=== PATIENT | female | born 1965 | race American Indian/Alaskan Native ===

== ENCOUNTER 2020-02-25 15:17 | Inpatient (IN) | payer SELFPAY ==
[2020-02-25 15:30] VITALS: BMI 29.2
--- NOTE | 2020-02-25 15:54 | PDOC ---
History of Present Illness - General Chief Complaint: Seizure Stated Complaint: SEIZURE Time Seen by Provider: 02/25/20 15:21 - History of Present Illness Initial Comments: 02/25/20 16:10 54 yo female with pmh of epilepsy disorder presents to ED for syncopal event earlier today. Pt daughter explains because pt does not remember event. Pt ate some food and then after eating about two minutes later the daughter came back into the room and saw pt her on the floor on her left with drool coming out of her mouth. According to daughter, pt was nonresponsive for few minutes to painful stimuli. After a few minutes pt came back to normal baseline mental status. According to EMS pt did have a postictal state and did come back to no rmal mental status but was complaining of nausea so was given zofran. Pt currently has a mild headache going from the back of her head to the front of her head. Pt prior to her seizure did have a normal preaura where she felt fatigue. Pt is supposed to be on keppra 500mg QD, but stopped taking it a year ago. Pt last seizure was 2 years ago. Pt usual seizures is generalized tonic clonic seizure. Pt denies chest pain, fevers, SOB, abdominal pain, dysuria, urinary frequency, blurry vison, weakness, stiff neck, palpitations, rash and not under increased stress. Pt has recently traveled from [facility] 1.5 weeks ago with no sick contacts. PMH: Epilepsy Meds: denies current medication. PsH; hysterectomy Allergies: denies Social: denies drugs or tobacco; occasional wine with dinner Neurologist: in [facility] Past History - Medical History Allergies/Adverse Reactions: Allergies Allergy/AdvReac Type Severity Reaction Status Date / Time No Known Allergies Allergy Verified 02/25/20 15:30 Home Medications: Ambulatory Orders NK [No Known Home Medication] 02/25/20 COPD: No Seizures: Yes (stopped meds 1.5 years ago.) - Reproductive History Is Patient Now?: No - Psycho-Social/Smoking History Smoking History: Smoker current status UNK - Substance Abuse Hx (Audit-C & DAST Scrn) In the last yr the pt used illegal drug/Rx for NonMed reason: No Score: Yes response is considered Positive: 0 Screen Result (Positive result requires Nsg. DAST-10): Negative Review of Systems - Review of Systems Comments:: 10/13/20 16:35 GENERAL/CONSTITUTIONAL: No fever or chills. No weakness. HEAD, EYES, EARS, NOSE AND THROAT: No change in vision. No ear pain or discharge. No sore throat. CARDIOVASCULAR: No chest pain or shortness of breath RESPIRATORY: No cough, wheezing, or hemoptysis. GASTROINTESTINAL:Nauseos. No vomiting, diarrhea or constipation. GENITOURINARY: No dysuria, frequency, or change in urination. MUSCULOSKELETAL: No joint or muscle swelling or pain. No neck or back pain. SKIN: No rash NEUROLOGIC: Headache. LOC ENDOCRINE: No increased thirst. No abnormal weight change ALLERGIC/IMMUNOLOGIC: No hives or skin allergy. *Physical Exam - Vital Signs Last Vital Signs Temp Pulse Resp BP Pulse Ox 98.2 F 110 H 18 110/83 99 02/25/20 15:22 02/25/20 15:22 02/25/20 15:22 02/25/20 15:22 02/25/20 15:22 - Physical Exam 02/25/20 16:36 GENERAL: Awake, alert, and fully oriented, in no acute distress HEAD: No signs of trauma, normocephalic, atraumatic EYES: PERRLA, EOMI, sclera anicteric, conjunctiva clear ENT: Auricles normal inspection, hearing grossly normal, nares patent, or opharynx clear without exudates. Moist mucosa NECK: Normal ROM, supple, no lymphadenopathy, JVD, or masses LUNGS: No distress, speaks full sentences, clear to auscultation bilaterally HEART: Regular rate and rhythm, normal S1 and S2, no murmurs, rubs or gallops, peripheral pulses normal and equal bilaterally. ABDOMEN: Soft, nontender, normoactive bowel sounds. No guarding, no rebound. No masses EXTREMITIES : Normal inspection, Normal range of motion, no edema. No clubbing or cyanosis. NEUROLOGICAL: Cranial nerves II through XII intact. Normal speech, normal gait, no focal sensorimotor deficits. Finger to nose intact. Heel to sheriff intact. 5/5 muscle strength in upper and lower ext. SKIN: Warm, Dry, normal turgor, no rashes or lesions noted Heart Score/ECG Review - ECG Impressions Comment:: 02/25/20 16:59 Regular rate and rhythm at 89 bpm Normal axis No St segment changes or signs of ischemia Normal MA, QRS, and QT intervals. ED Treatment Course - LABORATORY CBC & Chemistry Diagram: 02/25/20 16:30 02/25/20 16:30 Medical Decision Making - Medical Decision Making 02/25/20 16:25 54 yo female coming in with pmh of epilepsy presents after syncopal event. Pt has stopped taking keppra 500 1.5 years ago. Pt found down less than 2 minutes. Assesment Syncope vs seizure Labs: CBC, CMP, ekg, CT head, Cardiac enzyme, covid, cxr Admit for syncope tele obs. 02/25/20 18:05 Labs are within normal limits will admit for syncope 02/25/20 18:22 Pt CK was elevated will give 1 liter of LR ( patients echo of two years ago according to pt was normal) PT HPI, ED Course, and plan was discussed with Dr. Kenny and he explained he will consult and come see the pt tonight. Microblog has been put in for admission 02/25/20 18:28 Dr. Stewart the attending was told about HPI, ED course, and plan. Pt will be admitted under . 02/25/20 19:04 PM notified of pt 02/25/20 19:23 Resident Simeon was notified of pt HPI, ED course, and plan. Pt will be admitted to Dr. Bass Discharge - Discharge Information Problems reviewed: Yes Clinical Impression/Diagnosis: Seizure Syncope Qualifiers: Syncope type: unspecified Qualified Code(s): R55 - Syncope and collapse Condition: Guarded - Admission Yes - Follow up/Referral - Patient Discharge Instructions - Post Discharge Activity
[2020-02-25] MEDS ORDERED: levETIRAcetam 500 MG TABLET (FP) PO ONE ×2 (16:26→16:53)
[2020-02-25 17:19] LABS: BASO % 0.3 % (0-2.0); EOS % 1.7 % (0-4.5); HEMATOCRIT 36.6 % (32.4-45.2); HEMOGLOBIN 12.7 GM/dL (10.7-15.3); LYMPH % 26.3 % (8-40); MCH 34.3 pg (25.7-33.7); MCHC 34.7 g/dl (32.0-36.0); MEAN PLT VOLUME 8.2 fl (7.5-11.1); MONO % 3.7 % (3.8-10.2); PLATELET COUNT 241 K/MM3 (134-434); RBC 3.69 M/mm3 (3.60-5.2); WHITE BLOOD COUNT 7.2 K/mm3 (4.0-10.0)
[2020-02-25 17:50] LABS: ALBUMIN 3.7 g/dl (3.4-5.0); ALK PHOS 138 U/L (45-117); ANION GAP 5 MMOL/L (8-16); BILIRUBIN,TOTAL 0.3 mg/dL (0.2-1); BLOOD UREA NITROGEN 13.5 mg/dL (7-18); CALCIUM 9.3 mg/dL (8.5-10.1); CHLORIDE 106 mmol/L (98-107); CO2 31 mmol/L (21-32); GLUCOSE,RANDOM 112 mg/dL (74-106); POTASSIUM 4.1 mmol/L (3.5-5.1); SGOT/AST 31 U/L (15-37); SGPT/ALT 53 U/L (13-61); SODIUM 142 mmol/L (136-145); TOT PROT 7.4 g/dl (6.4-8.2)
[2020-02-25 17:52] LABS: EPI CELLS 8 /uL (0-25.1); HYALINE CASTS 1 /uL (0-3.1); PH,URINE 5.5 (5.0-8.0); URINE APPEARANCE CLEAR; URINE BACTERIA 238 /uL (0-1359); URINE BILIRUBIN NEGATIVE (NEGATIVE); URINE COLOR YELLOW; URINE GLUCOSE (UA) NEGATIVE (NEGATIVE); URINE KETONE TRACE (NEGATIVE); URINE LEUK ESTERASE TRACE (NEGATIVE); URINE NITRITE NEGATIVE (NEGATIVE); URINE PROTEIN 1+ (NEGATIVE); URINE RBC 7 /uL (0-23.9); URINE UROBILINOGEN 0.2 mg/dL (0.2-1.0); URINE WBC 4 /uL (0-25.8)
[2020-02-25] MEDS ORDERED: LACTATED RINGERS SOLUTION 1000 ML INFUS.BAG IV ONE (18:07)
--- NOTE | 2020-02-25 18:10 | PDOC ---
Documentation entered by Yessi Schneider SCRIBE, acting as scribe for Jillian Grigsby MD. Jillian Grigsby MD: This documentation has been prepared by the Nino bobby Xhesika, SCRIBE, under my direction and personally reviewed by me in its entirety. I confirm that the documentation accurately reflects all work, treatment, procedures, and medical decision making performed by me. Attending Attestation - Resident Resident Name: [email or web address] - ED Attending Attestation I have performed the following: I have examined & evaluated the patient, The case was reviewed & discussed with the resident, I agree w/resident's findings & plan, Exceptions are as noted - HPI HPI: 02/25/20 17:41 The patient is a 54y/o F with pmh of epilepsy disorder who presents to ED with headache s/p syncopal event. Daughter states the pt was eating, she cam back and found the pt on the floor with drool coming out of her mouth. Daughter states the pt was unresponsive for few minutes, but after came back to normal baseline mental status. Per EMS pt was complaining of nausea so was given zofran. Pt has a hx of tonic clonic seizure and last seizure was 2 years ago. Pt has recently traveled from [facility] 1.5 weeks ago but denies sick contacts. The patient denies chest pain, shortness of breath. Denies fever, chills, cough, vomiting, diarrhea and constipation. Denies dysuria, frequency, urgency and hematuria. Allergies: NKDA - Physicial Exam PE: 02/25/20 18:13 02/25/20 18:18 head no scalp laceration,no facial abrasions neck no midline cervical vertebral tenderness lungs cta b/l cvs [id number] abdomen no rebound, no guarding skin warm and dry extremities no deformities neuro axox3 at this time,motor strength 5/5 b/l - Medical Decision Making 02/25/20 18:09 ekg shows NSR @ 89 bpm,inverted t waves V1,V2 02/25/20 18:18 54 yo female with a h/o epilepsy but is non -compliant with her keppra. Today her daughter found her mother down at home but she did not actually witness a seizure so the pt is being admitted to telemetry, szs vs syncope 02/25/20 18:21 neuro consulted , Dr Edgar Discharge - Discharge Information Problems reviewed: Yes Clinical Impression/Diagnosis: Seizure Syncope Qualifiers: Syncope type: unspecified Qualified Code(s): R55 - Syncope and collapse Condition: Guarded - Follow up/Referral - Patient Discharge Instructions - Post Discharge Activity
--- NOTE | 2020-02-25 18:26 | CON.NEURO ---
Consult Consult Specialty:: [facility] Referred by:: ER Reason for Consultation:: Sz - History of Present Illness History of Present Illness: is a very pleasant 54-year-old right-handed female patient who had a syncopal episode patient with history of seizure disorder patient used to be on Keppra no report of any recent travel no weight loss no weight gain in the emergency room patient stopped seizing patient had 500 mg of Keppra given. 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: Other ...LMP: 02/25/20 ...: No - Smoking History Smoking history: Smoker current status UNK Home Medications - Allergies Allergies/Adverse Reactions: Allergies Allergy/AdvReac Type Severity Reaction Status Date / Time No Known Allergies Allergy Verified 02/25/20 15:30 Family Medical History Family History: Unable to Obtain Review of Systems - Review of Systems Neurological: reports: Dizziness, Headache, Incoordination, Numbness Physical Exam-Neuro Vital Signs: Vital Signs Temperature 98.2 F 02/25/20 15:22 Pulse Rate 110 H 02/25/20 15:22 Respiratory Rate 18 02/25/20 15:22 Blood Pressure 110/83 02/25/20 15:22 O2 Sat by Pulse Oximetry (%) 99 02/25/20 15:22 Labs: CBC, BMP 02/25/20 16:30 02/25/20 16:30 - Neuro Exam Level Of Consciousness: Yes: Oriented to Person Eyes: Yes: PERRL Speech: WNL DTR's: 1+ Left Bicep, 1+ Right Bicep, 1+ Left Tricep, 1+ Right Tricep Response to light touch: Normal Response to pain prick: Normal Response to temperature: Normal Response to vibration: Normal Motor Strength: 3/5: Left Arm, Right Arm, Left Leg, Right Leg Imaging - Results Cat Scan: Image Reviewed Problem List - Problems (1) Seizure Code(s): R56.9 - UNSPECIFIED CONVULSIONS Assessment/Plan Keppra 500 mg twice daily. Check Keppra level in 24 hours. EEG as an outpatient
--- NOTE | 2020-02-25 19:30 | PN ---
Teaching Attending Note Name of Resident: Janiya Lynch ATTENDING PHYSICIAN STATEMENT I saw and evaluated the patient. I reviewed the resident's note and discussed the case with the resident. I agree with the resident's findings and plan as documented. SUBJECTIVE: Patient is a 54 year old woman with a PMH of Epilepsy (off [place] for 1.5 years) who presents to the ER with headache after a syncopal episode. Daughter reports that the patient was eating, she came back and found the patient on the floor with drool coming out of her mouth. Daughter states the patient was unresponsive for few minutes, but after came back to normal baseline mental status. No reported fecal or urinary incontinence. Per EMS patient was complaining of nausea so was given Zofran. Her last witnessed tonic clonic seizure was 2 years ago. Patient traveled from [facility] 1.5 weeks ago but denies sick contacts. Patient denies chest pain, shortness of breath, abdominal pain, palpitations, dizziness, fever, chills, vomiting, diarrhea, constipation, dysuria, frequency, urgency, melena, hematochezia or hematuria. Denies alcohol, tobacco or illicit drug use. Family history is unremarkable. OBJECTIVE: Alert Vital Signs Period Temp Pulse Resp BP Sys/Truong Pulse Ox Last 24 Hr 98.2 F 110 18 110/83 99 HEENT: No Jaundice, eye redness or discharge, PERRLA, EOMI. Normocephalic, atraumatic. External ears are normal and hearing is grossly intact. No nasal discharge. Neck: Supple, nontender. No palpable adenopathy or thyromegaly. No JVD Chest: Good effort. Clear to auscultation and percussion. Heart: Regular. No S3, rub or murmur Abdomen: Not distended, soft, nontender and no HSM. No rebound or guarding. Normal bowel sounds. Ext: Peripheral pulses intact. No leg edema. Skin: Warm and dry. No petechiae, rash or ecchymosis. Neuro: Alert. Oriented x3. CN 2-12 grossly intact. Sensation grossly intact in all four extremities and DTR are symmetric. Psych: Appropriate mood and affect. Good insight. Home Medications Medication Instructions Recorded NK [No Known Home Medication] 02/25/20 Abnormal Lab Results 02/25/20 02/25/20 02/25/20 16:30 16:30 16:30 MCV 99.0 H MCH 34.3 H Monocytes % 3.7 L Anion Gap 5 L Random Glucose 112 H Alkaline Phosphatase 138 H Creatine Kinase 655 H Urine Protein 1+ H Urine Ketones Trace H Current Medications Generic Name Dose Route Start Last Admin Trade Name Imtiazq PRN Reason Stop Dose Admin Enoxaparin Sodium 40 mg 02/26/20 10:00 Lovenox - SQ DAILY [facility] Sodium Chloride 1,000 mls @ 100 mls/hr 02/25/20 21:15 Normal Saline - IV 02/27/20 07:14 ASDIR ANDREW Levetiracetam 500 mg 02/26/20 10:00 Keppra - PO BID [facility] ASSESSMENT AND PLAN: 1. Syncope - Likely due to seizure activity - her CPK is elevated. No evidence of acute intracranial pathology on noncontrast head CT scan. Started on Keppra 500 mg PO bid. Will give a loading dose of 1 gram IV and continue IV NS and trend CPK. EKG shows NSR at 89/minute, QTc 425, LAE, T wave inversion in V1-V2 with no significant acute ischemic ST changes. No old EKG available for comparison. Initial troponin is negative. Will do neurochecks and implement fall/aspiration/seizure precautions. Viral testing for COVID-19 ordered and patient placed on airborne, droplet and contact isolation. 2. Overweight Counseled on the risks associated with overweight. Will provide patient all the necessary assistance, counseling and positive reinforcement to facilitate weight loss. Consult fibre composite technician. 3. DVT prophylaxis - Lovenox 40 mg SQ q 24 hours. 4. Advance directives - Full code
--- NOTE | 2020-02-25 21:14 | HP ---
CHIEF COMPLAINT: headache following episode of 'blacking out' HISTORY OF PRESENT ILLNESS: Melanie Lacey is a 54 yo female with PMH epilepsy, non-compliant with Keppra, presenting after 'blacking out' this afternoon. Patient reports being in her usual state of good health this afternoon, visiting her daughter from her home country [facility], and this afternoon her daughter came home from work with abril. Daughter then went to shower, and patient was in the kitchen, standing while eating her empanada, suddenly felt profound fatigue (which has happened prior to her tonic clonic seizures), when before she knew it she was on the floor. She reports waking up feeling nauseous, with a headache described in the occipital region with pulsations lasting 5 minutes. She is unaware of how long she was on the floor. Daughter reported to medical personnel that her young son ran to the shower and said 'grandma is on the floor'. She didn't immediately get out of the shower but when the older son confirmed she was down, the patients daughter quickly ran out of the shower to find her mother unresponsive on the floor. Daughter not at bedside, unable to reach her for further information. Patient denies tongue biting, incontinence. Reports last seizure occurred in 2018, and during prior seizures has experienced tongue biting and incontinence. Seizures began 5 years ago, underwent work up in [facility] by neuro who could not identify a trigger. She was started on Keppra but stopped taking her medication 2 years ago because she says she forgot about it and was feeling fine. ER course was notable for: - Vitals on arrival: T 98.2, HR 110, BP 110/83, RR 18, o2 sat 99 on room air - Labs notable for CK to 655 - CT head: no evidence of acute pathology; partially empty sella turcica - EKG: vent rate 89, QTc 425, NSR, possible LA enlargement Recent Travel: Travel from [facility] to visit her grandchildren living in [place] through end of this year PAST MEDICAL HISTORY: Epilepsy diagnosed 5 y ago PAST SURGICAL HISTORY: with hysterectomy -- approx 30 years ago Social History: Smoking:NO Alcohol: Wine with dinner occasionally Drugs: No Allergies No Known Allergies Allergy (Verified 02/25/20 15:30) HOME MEDICATIONS: Home Medications Medication Instructions Recorded NK [No Known Home Medication] 02/25/20 REVIEW OF SYSTEMS SEE HPI PHYSICAL EXAMINATION Vital Signs - 24 hr 02/25/20 02/25/20 15:22 19:55 Temperature 98.2 F 98.0 F Pulse Rate 110 H Pulse Rate [ 86 Left] Respiratory 18 17 Rate Blood Pressure 110/83 Blood Pressure 113/62 [Right] O2 Sat by Pulse 99 97 Oximetry (%) GENERAL: Awake, alert, and fully oriented, in no acute distress. HEAD: Normal with no signs of trauma, abrasions, injury. Tongue without evidence of cuts. EYES: Pupils equal, round and reactive to light, extraocular movements intact. EARS, NOSE, THROAT: Ears normal, nares patent, oropharynx clear without exudates. Moist mucous membranes. NECK: Normal range of motion, supple without lymphadenopathy LUNGS: Breath sounds equal, clear to auscultation bilaterally. No wheezes, and no crackles. HEART: Regular rate and rhythm, normal S1 and S2 without murmur ABDOMEN: Soft, nontender, not distended, normoactive bowel sounds, no guarding, no rebound, no masses. MUSCULOSKELETAL: Normal range of motion at all joints. No bony deformities or tenderness. No CVA tenderness. LOWER EXTREMITIES: 2+ pulses, warm, well-perfused. No calf tenderness. No peripheral edema. NEUROLOGICAL: Cranial nerves II-XII intact. Normal speech. PSYCHIATRIC: Cooperative. Good eye contact. Appropriate mood and affect. Laboratory Results - last 24 hr 02/25/20 02/25/20 02/25/20 16:30 16:30 16:30 WBC 7.2 RBC 3.69 Hgb 12.7 Hct 36.6 MCV 99.0 H MCH 34.3 H MCHC 34.7 RDW 13.0 Plt Count 241 MPV 8.2 Absolute Neuts (auto) 4.9 Neutrophils % 68.0 Lymphocytes % 26.3 Monocytes % 3.7 L Eosinophils % 1.7 Basophils % 0.3 Nucleated RBC % 0 Sodium 142 Potassium 4.1 Chloride 106 Carbon Dioxide 31 Anion Gap 5 L BUN 13.5 Creatinine 1.0 Est GFR (CKD-EPI)AfAm 75.01 Est GFR (CKD-EPI)NonAf 64.72 Random Glucose 112 H Calcium 9.3 Total Bilirubin 0.3 AST 31 ALT 53 Alkaline Phosphatase 138 H Creatine Kinase 655 H Creatine Kinase Index 0.5 CK-MB (CK-2) 3.5 Troponin I < 0.02 Total Protein 7.4 Albumin 3.7 Urine Color Yellow Urine Appearance Clear Urine pH 5.5 Ur Specific [place] 1.021 Urine Protein 1+ H Urine Glucose (UA) Negative Urine Ketones Trace H Urine Blood Negative Urine Nitrite Negative Urine Bilirubin Negative Urine Urobilinogen 0.2 Ur Leukocyte Esterase Trace Urine WBC (Auto) 4 Urine RBC (Auto) 7 Urine Casts (Auto) 1 U Epithel Cells (Auto) 8 Urine Bacteria (Auto) 238 ASSESSMENT/PLAN: Melanie Lacey is a 54 yo female with PMH epilepsy, non-compliant with Keppra, presenting after 'blacking out' this afternoon; admitted with likely seizure #Seizure - Pt w /hx tonic clonic seizures; hasn't taken Keppra in 2 yrs; exp epileptic aura and post ictal state - Received 500 Keppra in ED; subsequently given 1000 mg before coming up to floor - ED consulted Dr. Kenny who advises pt to take Keppra 500 bid -- orders placed; also advising checking Keppra level and outpatient EEG - Patient was found with food in her mouth on the floor; monitor closely for signs of aspiration pneumonia - CK 655 in ED - Follow up CK level in am; continue fluids to decrease CK - Seizure precautions during admission #Asymptomatic Bacteriuria - No treatment indicated DVT prophylaxis: Lovenox 40 sq FEN - 0.9 NS @ 100 mls/hr - Monitor am labs; CK, HbA1c level - Regular diet Disposition: Telemetry FULL CODE Family Medical History Family History: As Documented Visit type - Emergency Visit Emergency Visit: Yes ED Registration Date: 02/25/20 Care time: The patient presented to the Emergency Department on the above date and was hospitalized for further evaluation of their emergent condition. - New Patient This patient is new to me today: Yes Date on this admission: 02/25/20 - Critical Care Critical Care patient: No ATTENDING PHYSICIAN STATEMENT I saw and evaluated the patient. I reviewed the resident's note and discussed the case with the resident. I agree with the resident's findings and plan as documented. SUBJECTIVE: OBJECTIVE: ASSESSMENT AND PLAN:
[2020-02-25] MEDS ORDERED: SODIUM CHLORIDE 1,000 ML IV SCH (21:15)
[2020-02-25] MEDS ORDERED: levETIRAcetam 500 MG/5 ML INJECTION VIAL IVPB ONE (21:20)
[2020-02-26 07:16] LABS: BASO % 0.3 % (0-2.0); EOS % 2.8 % (0-4.5); HEMATOCRIT 33.9 % (32.4-45.2); HEMOGLOBIN 11.4 GM/dL (10.7-15.3); LYMPH % 35.9 % (8-40); MCH 33.1 pg (25.7-33.7); MCHC 33.6 g/dl (32.0-36.0); MEAN CELL VOLUME 98.8 fl (80-96); MEAN PLT VOLUME 8.2 fl (7.5-11.1); MONO % 4.5 % (3.8-10.2); NEUT % 56.5 % (42.8-82.8); PLATELET COUNT 226 K/MM3 (134-434); RBC 3.44 M/mm3 (3.60-5.2); RDW 13.3 % (11.6-15.6); WHITE BLOOD COUNT 7.6 K/mm3 (4.0-10.0)
[2020-02-26 07:55] LABS: ALBUMIN 3.2 g/dl (3.4-5.0); BILIRUBIN,TOTAL 0.5 mg/dL (0.2-1); BLOOD UREA NITROGEN 13.4 mg/dL (7-18); CALCIUM 8.6 mg/dL (8.5-10.1); CREATININE 0.9 mg/dL (0.55-1.3); POTASSIUM 3.7 mmol/L (3.5-5.1); TOT PROT 6.5 g/dl (6.4-8.2)
--- NOTE | 2020-02-26 09:52 | EKG ---
Test Reason : Blood Pressure : / mmHG Vent. Rate : 089 BPM Atrial Rate : 089 BPM P-R Int : 170 ms QRS Dur : 084 ms QT Int : 350 ms P-R-T Axes : 060 056 043 degrees QTc Int : 425 ms NORMAL SINUS RHYTHM POSSIBLE LEFT ATRIAL ENLARGEMENT BORDERLINE ECG NO PREVIOUS ECGS AVAILABLE Confirmed by MD Sean, Rey ([id number]) on 02/26/2020 9:51:30 AM Referred By: Confirmed By:Rey Estrada MD
[2020-02-26] MEDS ORDERED: ENOXAPARIN NA (PORCINE) 40 MG/0.4 ML DISP.SYRIN SQ SCH (10:00)
[2020-02-26] MEDS ORDERED: levETIRAcetam 500 MG TABLET (FP) PO SCH (10:00)
[2020-02-26] MEDS ORDERED: levETIRAcetam 500 MG TABLET (FP) PO ONE (10:13)
--- NOTE | 2020-02-26 11:27 | PN ---
Teaching Attending Note Name of Resident: Maurizio Gerardo ATTENDING PHYSICIAN STATEMENT I saw and evaluated the patient. I reviewed the resident's note and discussed the case with the resident. I agree with the resident's findings and plan as documented. SUBJECTIVE: Seen and examined at bedside. Patient is alert and oriented x3, ambulatory and is at her mental baseline. She has no physical, mental, or neurological complaints. Patient does not have any insurance and lives and follows in [facility] for medical care. A Keppra level will take several days to results and patient does not have insurance to get blood tests or follow-up as an outpatient. Patient is medically cleared for discharge. We will draw a Keppra level and attempt to call back the patient with the result likely next week. She will be prescribed Keppra 500 mg twice daily. OBJECTIVE Last Vital Signs Temp Pulse Resp BP Pulse Ox 97.7 F 80 18 105/75 99 02/26/20 08:53 02/26/20 08:53 02/26/20 06:20 02/26/20 08:53 02/26/20 08:57 PE: Per resident note Labs/Imaging: reviewed ASSESSMENT/PLAN 54-year-old female with a past medical history of epilepsy has not taken her Keppra for the last 2 years presented after blacking out being found on the ground by her grandson yesterday afternoon. CPK was elevated suggestive of tonic-clonic seizure. Patient was restarted on Keppra and is no longer postictal. Patient will be given 2 months of Keppra 500 mg twice daily and was instructed to follow-up with her physician in [facility]. We will check a 24-hour Keppra level and call her with the results
--- NOTE | 2020-02-26 11:30 | DS ---
Physical Exam: SUBJECTIVE: Patient seen and examined. Pt. states she feels much better. Pt. endorses history of Epilepsy stopped taking mediactions on her own, last taken 2 years ago also last seizure 2 years ago. Pt. does not know why she has seizures, denies history of stroke. Seizures started 5 years ago in [facility]. Pt. frequently travels from [facility] to [place]. OBJECTIVE: Vital Signs Period Temp Pulse Resp BP Sys/Truong Pulse Ox Last 24 Hr 97.6 F-98.2 F 71-110 16-18 99-117/58-83 97-99 PHYSICAL EXAM GENERAL: The patient is awake, alert, and fully oriented, in no acute distress. HEAD: Normal with no signs of trauma. EYES: PERRL, extraocular movements intact, sclera anicteric, conjunctiva clear. ENT: Ears normal, nares patent, oropharynx clear without exudates, moist mucous membranes. NECK: Trachea midline, full range of motion, supple. LUNGS: Breath sounds equal, clear to auscultation bilaterally, no wheezes, no crackles, no accessory muscle use. HEART: Regular rate and rhythm, S1, S2 without murmur, rub or gallop. ABDOMEN: Soft, nontender, nondistended, normoactive bowel sounds, no guarding, no rebound, no hepatosplenomegaly, no masses. EXTREMITIES: 2+ pulses, warm, well-perfused, no edema. NEUROLOGICAL: Cranial nerves II through XII grossly intact. Normal speech and gait. PSYCH: Normal mood, normal affect. SKIN: Warm, dry, normal turgor LABS Laboratory Results - last 24 hr 02/25/20 02/25/20 02/25/20 16:30 16:30 16:30 WBC 7.2 RBC 3.69 Hgb 12.7 Hct 36.6 MCV 99.0 H MCH 34.3 H MCHC 34.7 RDW 13.0 Plt Count 241 MPV 8.2 Absolute Neuts (auto) 4.9 Neutrophils % 68.0 Lymphocytes % 26.3 Monocytes % 3.7 L Eosinophils % 1.7 Basophils % 0.3 Nucleated RBC % 0 Sodium 142 Potassium 4.1 Chloride 106 Carbon Dioxide 31 Anion Gap 5 L BUN 13.5 Creatinine 1.0 Est GFR (CKD-EPI)AfAm 75.01 Est GFR (CKD-EPI)NonAf 64.72 Random Glucose 112 H Hemoglobin A1c % Calcium 9.3 Total Bilirubin 0.3 AST 31 ALT 53 Alkaline Phosphatase 138 H Creatine Kinase 655 H Creatine Kinase Index 0.5 CK-MB (CK-2) 3.5 Troponin I < 0.02 Total Protein 7.4 Albumin 3.7 Urine Color Yellow Urine Appearance Clear Urine pH 5.5 Ur Specific [place] 1.021 Urine Protein 1+ H Urine Glucose (UA) Negative Urine Ketones Trace H Urine Blood Negative Urine Nitrite Negative Urine Bilirubin Negative Urine Urobilinogen 0.2 Ur Leukocyte Esterase Trace Urine WBC (Auto) 4 Urine RBC (Auto) 7 Urine Casts (Auto) 1 U Epithel Cells (Auto) 8 Urine Bacteria (Auto) 238 02/26/20 02/26/20 02/26/20 06:07 06:07 06:07 WBC 7.6 RBC 3.44 L Hgb 11.4 Hct 33.9 MCV 98.8 H MCH 33.1 MCHC 33.6 RDW 13.3 Plt Count 226 MPV 8.2 Absolute Neuts (auto) 4.3 Neutrophils % 56.5 Lymphocytes % 35.9 D Monocytes % 4.5 Eosinophils % 2.8 Basophils % 0.3 Nucleated RBC % 0 Sodium 141 Potassium 3.7 Chloride 109 H Carbon Dioxide 28 Anion Gap 4 L BUN 13.4 Creatinine 0.9 Est GFR (CKD-EPI)AfAm 85.20 Est GFR (CKD-EPI)NonAf 73.51 Random Glucose 89 Hemoglobin A1c % 4.9 Calcium 8.6 Total Bilirubin 0.5 AST 21 ALT 43 Alkaline Phosphatase 109 Creatine Kinase Creatine Kinase Index CK-MB (CK-2) Troponin I Total Protein 6.5 Albumin 3.2 L Urine Color Urine Appearance Urine pH Ur Specific [place] Urine Protein Urine Glucose (UA) Urine Ketones Urine Blood Urine Nitrite Urine Bilirubin Urine Urobilinogen Ur Leukocyte Esterase Urine WBC (Auto) Urine RBC (Auto) Urine Casts (Auto) U Epithel Cells (Auto) Urine Bacteria (Auto) HOSPITAL COURSE: Date of Admission:02/25/20 Date of Discharge: 02/26/20 Pt. is a 54-year-old female with a past medical history of epilepsy has not taken her Keppra for the last 2 years presented after blacking out being found on the ground by her grandson yesterday afternoon. CPK was elevated suggestive of tonic-clonic seizure. Patient was restarted on Keppra and is no longer postictal. Patient will be given 2 months of Keppra 500 mg twice daily and was instructed to follow-up with her physician in [facility]. We will check a 24-hour Keppra level. Pt. had negative Head CT and CXR for acute pathology. Pt. was seen by Neurology. Pt. denies having health insurance here but given outpatient referral to Neurology and for PCP. Minutes to complete discharge: 35 Discharge Summary Problems reviewed: Yes Reason For Visit: SEIZURE SYNCOPE Current Active Problems Seizure (Acute) Syncope (Acute) Condition: Stable - Instructions Diet, Activity, Other Instructions: You came in because you had a seizure. we observed you on telemetry and did not see anything of immediate concern. We imaged you head and did not see anything of immediate concern. We imaged your chest and there was a possible "density" in the right lung. Please follow up with your Primary care doctor to have repeat imaging. We have started you on Keppra 500mg TWICE a day, a medication you were previously on in the past to treat your epilepsy. Please follow up with your Neurologist and Primary Care Physician within 1 week, if you did not have one we have provided on for you. Referrals: Kenji Edgar MD [Staff Physician] - 1 Week [facility] – [place], [place] [facility] [Provider Group] - 1 Week Disposition: HOME - Home Medications Comprehensive Discharge Medication List: Ambulatory Orders levETIRAcetam [Keppra -] 500 mg PO BID #120 tablet 02/26/20 This patient is new to me today: Yes Date on this admission: 02/28/20 Emergency Visit: Yes ED Registration Date: 02/25/20 Care time: The patient presented to the Emergency Department on the above date and was hospitalized for further evaluation of their emergent condition. Critical Care patient: No - Discharge Referral Referred to [facility] No ATTENDING PHYSICIAN STATEMENT I saw and evaluated the patient. I reviewed the resident's note and discussed the case with the resident. I agree with the resident's findings and plan as documented. SUBJECTIVE: OBJECTIVE: ASSESSMENT AND PLAN:
[2020-02-26 12:24] VITALS: BP 124/74; PULSE 64; TEMP 98.6
== END 2020-02-26 13:45 | disposition home or self-care (01) | DRG 53 ==
LOC: JER 15:17 → JERBED 18:16
PROVIDERS: ADMIT Internal Medicine; ATTEND Internal Medicine
DX: G40.409 Other generalized epilepsy and epileptic syndromes, not intractable, without status epilepticus (principal); R55 Syncope and collapse; Z91.14 Patient's other noncompliance with medication regimen; E66.3 Overweight; R82.71 Bacteriuria; Z68.29 Body mass index [BMI] 29.0-29.9, adult
CPT/HCPCS: 36415; 70450-TC; 71045-TC-FY; 80053; 80177; 81003; 82550; 82553; 83036; 84484; 85025; 87086; 93005; 93010; 99285-25; C9803; U0003